=== PATIENT | female | born 1980 | race Caucasian/White ===

== ENCOUNTER 2017-01-05 22:43 | Inpatient (IN) ==
[2017-01-05] MEDS ORDERED: 0.9 % Sodium Chloride 1,000 ML IVC ONE (23:00)
[2017-01-05] MEDS ORDERED: Ondansetron 4 MG/2 ML VIAL IVP ONE (23:01)
[2017-01-05] MEDS ORDERED: *HR* HYDROmorphone (PF) 1 MG/ML SYRINGE IVP ONE ×2 (23:01→23:44)
[2017-01-05 23:09] LABS: Basophils # 0.1 K/mcL (0.0-0.2); Basophils % 0.3 %; Eosinophils % 0.2 %; Hematocrit 34.7 % (35.3-44.9); Hemoglobin 11.2 g/dL (11.5-15.4); Immature Granulocytes % 0.5 % (0-4); Lymphocytes # 1.6 K/mcL (0.6-4.6); Lymphocytes % 9.5 %; Mean Corpuscular HGB Conc 32.3 g/dL (31.6-35.5); Mean Corpuscular Hemoglobin 27.9 pg (28.0-33.3); Mean Corpuscular Volume 86.3 fL (83.0-100.0); Mean Platelet Volume 9.7 fL (9.4-12.4); Monocytes # 0.8 K/mcL (0.0-1.3); Monocytes % 4.6 %; Neutrophils # 14.3 K/mcL (1.6-8.9); Platelet Count 438 K/mcL (140-400); Red Blood Count 4.02 M/mcL (3.82-4.97); Red Cell Distribution Width 12.8 % (11.5-14.5); Segmented Neutrophils % 84.9 %
--- NOTE | 2017-01-05 23:13 | Emergency Department Note ---
Disposition Clinical Impression: Vaginal bleeding, Abdominal pain, Abdominal fluid collection Disposition: Admitted As Inpatient Condition: Fair Referrals: Kamila Henson DO [Primary Care Provider] - Forms: ED Satisfaction Letter Time of Disposition: 02:55 Female Urogenital HPI - General Chief complaint: ED Vaginal Bleeding Stated complaint: Vaginal Bleeding s/p surgery Time Seen by Provider: 01/05/17 23:00 Source: EMS Mode of arrival: private vehicle Limitations: no limitations Nursing Notes Reviewed: Yes Vital Signs Reviewed: Yes - History of Present Illness HPI Narrative: A very pleasant 36-year-old female patient presents to the emergency department via EMS with complaint of lower abdominal pain and vaginal bleeding. Patient states that she is postop from a hysterectomy on 12/17/[address] Pichardo. Patient states that she was recently seen in the office by Dr. Pichardo to half days ago for concerns of a possible yeast infection but was diagnosed with bacterial vaginosis and placed on Flagyl. Patient states that she has been taking her medication as prescribed. She denies any recent sexual intercourse. Patient states that she "had a gush of blood and passed a large clot." Patient is complaining of a significant amount of lower abdominal pain. She denies any back pain, chest pain, shortness of breath, dizziness or lightheadedness. Patient states that she had no complications with her surgery. She has no additional complaints or concerns at this time. Pt Subjective Complaint: vaginal bleeding Onset (ago): hour(s) Location: suprapubic Radiation: non-radiating Severity: severe Quality: aching Duration: constant Improves with: none Worsens with: none Urinary Symptoms: no dysuria, no urgency, no frequency, no hematuria, no foul smelling urine Vaginal discharge: blood, blood clots Sexual activity: no : no - Related Data Home Medications Medication Instructions Recorded Confirmed Cyanocobalamin (Vitamin B-12) 5,000 mcg SL DAILY 02/23/16 12/17/16 [Vitamin B-12] Albuterol Sulfate [Albuterol 2 puff IH Q4HR PRN 12/17/16 12/17/16 Inhaler] Loratadine [Claritin] 10 mg PO DAILY PRN 12/17/16 12/17/16 Previous Rx's Medication Instructions Recorded Ibuprofen [Motrin] 600 mg PO Q6HR PRN #40 tab 12/18/16 Ondansetron [Zofran] 4 mg PO Q8HR PRN #30 tablet 12/18/16 OxyCODONE/APAP 5/325 [Percocet 1 each PO Q4HR PRN #30 tablet 12/18/16 5/325 MG] Levofloxacin [Levaquin] 750 mg PO DAILY #10 tablet 12/20/16 Allergies Allergy/AdvReac Type Severity Reaction Status Date / Time adhesive AdvReac Rash Verified 12/17/16 12:28 cefazolin [From Ancef] AdvReac Hives Verified 12/17/16 12:28 Penicillins [PCN] AdvReac Hives Verified 12/17/16 12:28 All systems ED: reviewed and negative except as stated. Constitutional: Denies: fever, chills Cardiovascular: Denies: chest pain Respiratory: Denies: cough, dyspnea Gastrointestinal: Reports: abdominal pain, nausea. Denies: vomiting Genitourinary: Reports: other (vaginal bleeding). Denies: urgency, dysuria, frequency Musculoskeletal: Denies: back pain, neck pain Integumentary: Denies: rash, abrasion, lesions Neurological: Denies: headache Psychiatric: Denies: anxiety, depression, suicidal thoughts, homicidal thoughts Past Medical History - Past Medical History Attestation: Yes The following information was validated with the patient. Source: patient, nursing notes reviewed Medical history: Reports: asthma, GERD Psychiatric history: Reports: no psych history - Social History Smoking Status: Never smoker Smokeless Tobacco Status: No Alcohol use: Reports: occasionally Drug use: Reports: none Physical Exam - General Limitations: no limitations General appearance: alert, in no apparent distress - Head Head exam: atraumatic, normocephalic, normal inspection - Eye Eye exam: Present: normal appearance, PERRL - Neck Neck exam: Present: normal inspection, full ROM, trachea midline - Chest Chest inspection: Present: normal inspection, symmetric chest wall rise - Respiratory Respiratory exam: Present: normal lung sounds bilaterally. Absent: respiratory distress - Cardiovascular Cardiovascular exam: Present: normal rhythm, tachycardia, normal heart sounds - Abdominal Exam Abdominal exam: Present: soft, tenderness, normal bowel sounds. Absent: distention, guarding, rebound, rigidity Abdominal tenderness: Present: suprapubic - Female Data Operations Leader present during exam: Yes External Exam: Present: bleeding (dried red blood) Speculum Exam: Present: vaginal bleeding (No active bleeding, but there is fresh blood noted in the vaginal vault. Mild amount of discomfort with speculum exam.) - Extremities Exam Extremities exam: Present: normal inspection, full ROM. Absent: tenderness, pedal edema - Expanded Lower Extremity Exam Gait: observed and normal - Back Exam Back exam: Present: normal inspection, full ROM. Absent: tenderness - Neurological Exam Neurological exam: Present: alert, oriented X3 - Psychiatric Psychiatric exam: Present: anxious - Skin Skin exam: Present: warm, dry, intact, normal color Course - Consultations Consultation #1: I discussed this patient's case at length with Dr. Norman, patient has 2 areas of fluid collection on her CT scan concerning for blood-filled areas versus abscesses. Patient will be admitted to the hospital for IV antibiotics, observation and possible intervention by radiology. Patient verbalized understanding and agreement plan care. Time: 02:49 Vital Signs Temperature 98.2 F 01/05/17 22:48 Pulse Rate 105 01/05/17 22:48 Respiratory Rate 22 01/05/17 22:48 Blood Pressure 120/57 01/05/17 22:48 O2 Sat by Pulse Oximetry 100 01/05/17 22:48 Temperature 98.2 F 01/05/17 22:48 Pulse Rate 107 01/06/17 00:57 Respiratory Rate 16 01/06/17 00:57 Blood Pressure 119/88 01/06/17 00:57 O2 Sat by Pulse Oximetry 99 01/06/17 00:57 Oxygen Delivery Oxygen Delivery Room Air Urogenital-Female - Lab Data Result diagrams: 01/05/17 22:54 01/05/17 22:54 Lab Results 01/05/17 01/05/17 01/05/17 Range/Units 00:23 22:54 22:54 WBC 16.9 H (4.3-11.1) K/mcL RBC 4.02 (3.82-4.97) M/mcL Hgb 11.2 L (11.5-15.4) g/dL Hct 34.7 L (35.3-44.9) % MCV 86.3 (83.0-100.0) fL MCH 27.9 L (28.0-33.3) pg MCHC 32.3 (31.6-35.5) g/dL RDW 12.8 (11.5-14.5) % Plt Count 438 H (140-400) K/mcL MPV 9.7 (9.4-12.4) fL Immature Gran % 0.5 (0-4) % Seg Neutrophils % 84.9 % Lymphocytes % 9.5 % Monocytes % 4.6 % Eosinophils % 0.2 % Basophils % 0.3 % Neutrophils # 14.3 H (1.6-8.9) K/mcL Lymphocytes # 1.6 (0.6-4.6) K/mcL Monocytes # 0.8 (0.0-1.3) K/mcL Eosinophils # 0.0 (0.0-0.6) K/mcL Basophils # 0.1 (0.0-0.2) K/mcL PT 15.5 H (9.4-12.1) Seconds INR 1.4 APTT 37.0 H (26.0-36.0) Seconds Sodium (136-145) mEq/L Potassium (3.5-4.5) mEq/L Chloride (98-109) mEq/L Carbon Dioxide (19-29) mEq/L BUN (7-20) mg/dL Creatinine (0.57-1.11) mg/dL Est GFR ( Amer) (> 60) Est GFR (Non-Af Amer) (> 60) BUN/Creatinine Ratio (6-26) Glucose (70-99) mg/dL Calculated Osmolality (280-300) Calcium (8.6-10.8) mg/dL Total Bilirubin (0.2-1.2) mg/dL Direct Bilirubin (0.0-0.5) mg/dL Indirect Bilirubin (0.0-1.2) mg/dL AST (5-34) Units/L ALT (0-55) Units/L Alkaline Phosphatase (38-126) Units/L Serum Total Protein (6.0-8.3) g/dL Albumin (3.5-5.0) g/dL Globulin (2.4-3.5) g/dL Albumin/Globulin Ratio (1.1-2.2) Urine Color Yellow (Yellow) Urine Clarity Clear (Clear) Urine pH 8.5 H (5.0-8.0) pH Units Ur Specific [place] 1.017 (1.010-1.025) Urine Protein Negative (Neg-Trace) mg/dL Urine Glucose (UA) Normal (Normal) mg/dL Urine Ketones Negative (Negative) mg/dL Urine Blood Negative (Negative) Urine Nitrite Negative (Negative) Urine Bilirubin Negative (Negative) Urine Urobilinogen Normal (Normal) mg/dL Ur Leukocyte Esterase Negative (Negative) Urine Microscopic RBC 0-3 (0-3) per hpf Ur Squamous Epith Cells Moderate H (None-Few) per lpf Urine Bacteria None Seen (None-Few) per hpf Hyaline Casts None Seen (None-Few) per lpf Ur Culture Indicated? NO (NO) Blood Type Antibody Screen 01/05/17 01/05/17 Range/Units 22:54 22:54 WBC (4.3-11.1) K/mcL RBC (3.82-4.97) M/mcL Hgb (11.5-15.4) g/dL Hct (35.3-44.9) % MCV (83.0-100.0) fL MCH (28.0-33.3) pg MCHC (31.6-35.5) g/dL RDW (11.5-14.5) % Plt Count (140-400) K/mcL MPV (9.4-12.4) fL Immature Gran % (0-4) % Seg Neutrophils % % Lymphocytes % % Monocytes % % Eosinophils % % Basophils % % Neutrophils # (1.6-8.9) K/mcL Lymphocytes # (0.6-4.6) K/mcL Monocytes # (0.0-1.3) K/mcL Eosinophils # (0.0-0.6) K/mcL Basophils # (0.0-0.2) K/mcL PT (9.4-12.1) Seconds INR APTT (26.0-36.0) Seconds Sodium 140 (136-145) mEq/L Potassium 3.8 (3.5-4.5) mEq/L Chloride 104 (98-109) mEq/L Carbon Dioxide 25 (19-29) mEq/L BUN 12 (7-20) mg/dL Creatinine 0.75 (0.57-1.11) mg/dL Est GFR ( Amer) > 60 (> 60) Est GFR (Non-Af Amer) > 60 (> 60) BUN/Creatinine Ratio 16 (6-26) Glucose 107 H (70-99) mg/dL Calculated Osmolality 290 (280-300) Calcium 9.3 (8.6-10.8) mg/dL Total Bilirubin 0.3 (0.2-1.2) mg/dL Direct Bilirubin 0.2 (0.0-0.5) mg/dL Indirect Bilirubin 0.1 (0.0-1.2) mg/dL AST 10 (5-34) Units/L ALT 11 (0-55) Units/L Alkaline Phosphatase 79 (38-126) Units/L Serum Total Protein 7.5 (6.0-8.3) g/dL Albumin 3.0 L (3.5-5.0) g/dL Globulin 4.5 H (2.4-3.5) g/dL Albumin/Globulin Ratio 0.7 L (1.1-2.2) Urine Color (Yellow) Urine Clarity (Clear) Urine pH (5.0-8.0) pH Units Ur Specific [place] (1.010-1.025) Urine Protein (Neg-Trace) mg/dL Urine Glucose (UA) (Normal) mg/dL Urine Ketones (Negative) mg/dL Urine Blood (Negative) Urine Nitrite (Negative) Urine Bilirubin (Negative) Urine Urobilinogen (Normal) mg/dL Ur Leukocyte Esterase (Negative) Urine Microscopic RBC (0-3) per hpf Ur Squamous Epith Cells (None-Few) per lpf Urine Bacteria (None-Few) per hpf Hyaline Casts (None-Few) per lpf Ur Culture Indicated? (NO) Blood Type O POSITIVE Antibody Screen NEGATIVE
[2017-01-05 23:15] LABS: INR 1.4; Prothrombin Time 15.5 Seconds (9.4-12.1)
[2017-01-05 23:25] LABS: Alanine Aminotransferase 11 Units/L (0-55); Albumin/Globulin Ratio 0.7 (1.1-2.2); Alkaline Phosphatase 79 Units/L (38-126); Aspartate Amino Transferase 10 Units/L (5-34); BUN/Creatinine Ratio 16 (6-26); Bilirubin,Direct 0.2 mg/dL (0.0-0.5); Bilirubin,Indirect 0.1 mg/dL (0.0-1.2); Bilirubin,Total 0.3 mg/dL (0.2-1.2); Blood Urea Nitrogen 12 mg/dL (7-20); Calcium 9.3 mg/dL (8.6-10.8); Carbon Dioxide 25 mEq/L (19-29); Chloride 104 mEq/L (98-109); Globulin 4.5 g/dL (2.4-3.5); Glucose 107 mg/dL (70-99); Osmolality,Calculated 290 (280-300); Potassium 3.8 mEq/L (3.5-4.5); Sodium 140 mEq/L (136-145); Total Protein 7.5 g/dL (6.0-8.3); eGFR For African Americans > 60 (> 60); eGFR For Non-African Americans > 60 (> 60)
[2017-01-05 23:54] LABS: Bilirubin,Urine Negative (Negative); Blood,Urine Negative (Negative); Glucose,Urine (UA) Normal (Normal); Ketones,Urine Negative (Negative); Leukocyte Esterase,Urine Negative (Negative); Nitrite,Urine Negative (Negative); PH,Urine 8.5 pH Units (5.0-8.0); Protein,Urine Negative (Neg-Trace); Specific Gravity,Urine 1.017 (1.010-1.025); Urobilinogen,Urine Normal (Normal)
[2017-01-05 23:56] LABS: Bacteria,Urine None Seen per hpf (None-Few); Clarity,Urine Clear (Clear); Color,Urine Yellow (Yellow); Hyaline Casts,Urine None Seen per lpf (None-Few); RBC,Urine 0-3 per hpf (0-3); Squamous Epithelial Cell,Urine Moderate per lpf (None-Few)
[2017-01-06] MEDS ORDERED: *HR* Promethazine 25 MG/ML VIAL IVP ONE (00:49)
[2017-01-06] MEDS ORDERED: 0.9 % Sodium Chloride 1,000 ML ONE (01:46)
[2017-01-06] MEDS ORDERED: *HR* OxyCODONE/APAP 5/325 TABLET PO ONE (02:16)
[2017-01-06] MEDS ORDERED: *HR* Morphine 2 MG/ML SYRINGE IVP ONE (02:16)
[2017-01-06] MEDS ORDERED: 0.9 % Sodium Chloride 1,000 ML IVC ONE (02:31)
[2017-01-06] MEDS ORDERED: Promethazine 25 MG in 0.9 % Sodium Chloride 50 ML IVPB ONE (04:39)
[2017-01-06] MEDS ORDERED: GENTAMICIN IVPB SCH (05:00)
[2017-01-06] MEDS ORDERED: SODIUM CHLORIDE 0.9% IVPB SCH (05:00)
[2017-01-06] MEDS: Ringers Solution, Lactated 1,000 ML IVC SCH ×2 (05:46→16:14)
[2017-01-06] MEDS ORDERED: Ondansetron 4 MG/2 ML VIAL IVP SCH (06:00)
[2017-01-06] MEDS: Clindamycin 900 MG/50 ML 900 MG/50 ML IV.SOLN IVPB SCH ×3 (08:11→23:41)
--- NOTE | 2017-01-06 08:30 | OB/GYN History & Physical ---
Date of Encounter: 01/06/17 Time of Encounter: 08:21 Assessment and Plan (1) Abscess Current visit: Yes Status: Acute s/p RATLH on 12/17, will start Gent and Clind since patient is allergic to zosyn, will cont for [address] scan, if abscess unresolved, will contact VIR for drainage, will get in touch with Dr Pichadro History of Present Illness HPI: Ms. Liz is a 36 year old female s/p RA TLH on 12/[address] Pichardo who presented to the ED with complaints of pelvic pain and vag bleeding. She had a CT scan done which showed 2 pockets of vag cuff abscess measuring 4 and 5 cm approx. She is currently admitted to the floor for IV antibiotics with possible VIR drainage if unresolved with 48hrs. Past Med Surg Social Fam HX - Past Medical History Medical history: asthma, GERD Psychiatric history: no psych history - Social History Smoking Status: Never smoker Smokeless Tobacco Status: No Alcohol use: occasionally Drug use: none Medications and Allergies Cyanocobalamin (Vitamin B-12) [Vitamin B-12] 5,000 mcg SL DAILY 02/23/16 [ History] Albuterol Sulfate [Albuterol Inhaler] 2 puff IH Q4HR PRN 12/17/16 [History] Loratadine [Claritin] 10 mg PO DAILY PRN 12/17/16 [History] Ibuprofen [Motrin] 600 mg PO Q6HR PRN #40 tab 12/18/16 [Rx] Ondansetron [Zofran] 4 mg PO Q8HR PRN #30 tablet 12/18/16 [Rx] OxyCODONE/APAP 5/325 [Percocet 5/325 MG] 1 each PO Q4HR PRN #30 tablet 12/18/16 [Rx] Levofloxacin [Levaquin] 750 mg PO DAILY #10 tablet 12/20/16 [Rx] Allergies adhesive Adverse Reaction (Verified 12/17/16 12:28) Rash cefazolin [From Ancef] Adverse Reaction (Verified 12/17/16 12:28) Hives Penicillins [PCN] Adverse Reaction (Verified 12/17/16 12:28) Hives Review of System OB All systems PM: reviewed and no additional remarkable complaints except as stated Exam - Vital Signs Vital signs: Initial Vital Signs Temp Pulse Resp BP Pulse Ox 98.2 F 105 22 120/57 100 01/05/17 22:48 01/05/17 22:48 01/05/17 22:48 01/05/17 22:48 01/05/17 22:48 - Constitutional Constitutional: no acute distress - HEENT HEENT: Normocephaly - Neck Neck exam: full ROM - Lungs Respiratory exam: CTAB - Cardiovascular Cardiovascular exam: RRR - Abdomen Abdomen: Present: bowel sounds normal Abdomen detail: right upper quadrant: tenderness (mild), right lower quadrant: tenderness, left upper quadrant: tenderness, left lower quadrant: tenderness Results Result Diagrams: 01/05/17 22:54 01/05/17 22:54 Abnormal lab results WBC 16.9 K/mcL (4.3-11.1) H 01/05/17 22:54 Hgb 11.2 g/dL (11.5-15.4) L 01/05/17 22:54 Hct 34.7 % (35.3-44.9) L 01/05/17 22:54 MCH 27.9 pg (28.0-33.3) L 01/05/17 22:54 Plt Count 438 K/mcL (140-400) H 01/05/17 22:54 Neutrophils # 14.3 K/mcL (1.6-8.9) H 01/05/17 22:54 PT 15.5 Seconds (9.4-12.1) H 01/05/17 22:54 APTT 37.0 Seconds (26.0-36.0) H 01/05/17 22:54 Glucose 107 mg/dL (70-99) H 01/05/17 22:54 Albumin 3.0 g/dL (3.5-5.0) L 01/05/17 22:54 Globulin 4.5 g/dL (2.4-3.5) H 01/05/17 22:54 Albumin/Globulin Ratio 0.7 (1.1-2.2) L 01/05/17 22:54 Urine pH 8.5 pH Units (5.0-8.0) H 01/05/17 00:23 Ur Squamous Epith Cells Moderate per lpf (None-Few) H 01/05/17 00:23 All other labs normal.
[2017-01-06] MEDS: Gentamicin 130 MG in 0.9 % Sodium Chloride 100 ML IVPB SCH ×2 (13:35→21:06)
[2017-01-06] MEDS ORDERED: Gentamicin 140 MG in 0.9 % Sodium Chloride 100 ML IVPB SCH (15:00)
[2017-01-06] MEDS: Ondansetron 4 MG/2 ML VIAL IVP PRN (16:51)
[2017-01-07] MEDS: Ringers Solution, Lactated 1,000 ML IVC SCH ×2 (02:18→13:45)
[2017-01-07] MEDS: Gentamicin 130 MG in 0.9 % Sodium Chloride 100 ML IVPB SCH (05:28)
[2017-01-07 06:14] LABS: Hematocrit 30.8 % (35.3-44.9); Hemoglobin 9.7 g/dL (11.5-15.4); Immature Granulocytes % 0.6 % (0-4); Lymphocytes % 12.3 %; Mean Corpuscular HGB Conc 31.5 g/dL (31.6-35.5); Mean Corpuscular Hemoglobin 27.7 pg (28.0-33.3); Mean Platelet Volume 9.9 fL (9.4-12.4); Monocytes % 5.7 %; Platelet Count 385 K/mcL (140-400); Red Cell Distribution Width 13.2 % (11.5-14.5); Segmented Neutrophils % 80.9 %
[2017-01-07 06:15] LABS: Basophils % 0.2 %; Eosinophils % 0.3 %; Lymphocytes # 1.8 K/mcL (0.6-4.6); Monocytes # 0.8 K/mcL (0.0-1.3); Neutrophils # 11.7 K/mcL (1.6-8.9)
[2017-01-07] MEDS: Clindamycin 900 MG/50 ML 900 MG/50 ML IV.SOLN IVPB SCH ×3 (08:57→23:23)
--- NOTE | 2017-01-07 12:31 | OB/GYN Progress Note ---
Date of Encounter: 01/07/17 Time of Encounter: 12:29 - Assessment and Plan (1) Abscess Current Visit: Yes Status: Acute Patient clinically looking better still with low-grade fever and low appetite. We will continue IV antibiotics for another 12 hours obtain repeat CAT scan consider reexploration for drainage of the abscesses. We will place an. After midnight and CAT scan was ordered for tomorrow a.m. (2) S/P hysterectomy Current Visit: No Status: Acute Incisions are healing well without redness or erythema. Subjective - Subjective Principal diagnosis: pelvic abcesses s/p hysterectomy Interval history: Pt now with minimal bleeding/drainage. Pain improved. Very little appetite Objective - Vital Signs Vital Signs: Vital Signs Temp Pulse Resp BP 01/07/17 12:00 98.9 F 99 16 109/73 Intake and Output 01/06/17 01/07/17 01/07/17 23:59 07:59 15:59 Intake Total 600 / 600 Output Total 750 / 750 Balance -150 / -150 Intake: Oral 600 / 600 Output: Urine 750 / 750 - Exam Auscultation: bilateral: normal Abdomen: Present: soft, other (Mild tenderness bilateral lower quadrants) - Labs Labs: Abnormal lab results WBC 14.5 K/mcL (4.3-11.1) H 01/07/17 05:16 RBC 3.50 M/mcL (3.82-4.97) L 01/07/17 05:16 Hgb 9.7 g/dL (11.5-15.4) L D 01/07/17 05:16 Hct 30.8 % (35.3-44.9) L 01/07/17 05:16 MCH 27.7 pg (28.0-33.3) L 01/07/17 05:16 MCHC 31.5 g/dL (31.6-35.5) L 01/07/17 05:16 Neutrophils # 11.7 K/mcL (1.6-8.9) H 01/07/17 05:16 PT 15.5 Seconds (9.4-12.1) H 01/05/17 22:54 APTT 37.0 Seconds (26.0-36.0) H 01/05/17 22:54 Glucose 107 mg/dL (70-99) H 01/05/17 22:54 Albumin 3.0 g/dL (3.5-5.0) L 01/05/17 22:54 Globulin 4.5 g/dL (2.4-3.5) H 01/05/17 22:54 Albumin/Globulin Ratio 0.7 (1.1-2.2) L 01/05/17 22:54 Urine pH 8.5 pH Units (5.0-8.0) H 01/05/17 00:23 Ur Squamous Epith Cells Moderate per lpf (None-Few) H 01/05/17 00:23
[2017-01-07] MEDS ORDERED: *HR* Promethazine 25 MG/ML VIAL IVP PRN (14:21)
[2017-01-07] MEDS: *HR* HYDROmorphone (PF) 1 MG/ML SYRINGE IVP PRN ×2 (14:37→22:24)
[2017-01-07] MEDS ORDERED: Gentamicin 500 MG in 0.9 % Sodium Chloride 100 ML IVPB SCH (16:00)
[2017-01-08] MEDS: Ringers Solution, Lactated 1,000 ML IVC SCH ×3 (00:34→16:32)
[2017-01-08 06:41] LABS: Basophils % 0.3 %; Eosinophils # 0.1 K/mcL (0.0-0.6); Eosinophils % 0.8 %; Hemoglobin 9.1 g/dL (11.5-15.4); Immature Granulocytes % 0.5 % (0-4); Lymphocytes # 1.5 K/mcL (0.6-4.6); Lymphocytes % 14.5 %; Mean Corpuscular HGB Conc 31.4 g/dL (31.6-35.5); Mean Corpuscular Hemoglobin 27.7 pg (28.0-33.3); Mean Corpuscular Volume 88.1 fL (83.0-100.0); Mean Platelet Volume 9.6 fL (9.4-12.4); Monocytes # 0.6 K/mcL (0.0-1.3); Monocytes % 5.6 %; Neutrophils # 8.3 K/mcL (1.6-8.9); Platelet Count 355 K/mcL (140-400); Red Blood Count 3.29 M/mcL (3.82-4.97); Red Cell Distribution Width 13.1 % (11.5-14.5); Segmented Neutrophils % 78.3 %
[2017-01-08] MEDS: Clindamycin 900 MG/50 ML 900 MG/50 ML IV.SOLN IVPB SCH ×2 (08:04→16:33)
[2017-01-08] MEDS: Ondansetron 4 MG/2 ML VIAL IVP PRN ×2 (08:10→21:29)
[2017-01-08] MEDS ORDERED: Bupivacaine/EPI 1:200k 0.25%PF 10 ML VIAL INFILT ONE ×2 (16:42→17:24)
--- NOTE | 2017-01-08 17:35 | Anesthesia Evaluation PreOp ---
Date of Encounter: 01/08/17 Time of Encounter: 17:35 - Past History Planned Operation: Diagnostic Lap Cardiac History: Denies any Significant Hx Pulmonary History: Asthma CUSTODIAN SUPERVISOR History: Denies Any Significant HX Other Medical History: GERD Anesthesia History: No Prior Anesthetic Complications : No (s/p Robotic Lap Hysterectomy) Alcohol Use: occasionally Drug use: none Medications and Allergies Cyanocobalamin (Vitamin B-12) [Vitamin B-12] 5,000 mcg SL DAILY 02/23/16 [ History] Albuterol Sulfate [Albuterol Inhaler] 2 puff IH Q4HR PRN 12/17/16 [History] Loratadine [Claritin] 10 mg PO DAILY PRN 12/17/16 [History] Ibuprofen [Motrin] 600 mg PO Q6HR PRN #40 tab 12/18/16 [Rx] Ondansetron [Zofran] 4 mg PO Q8HR PRN #30 tablet 12/18/16 [Rx] OxyCODONE/APAP 5/325 [Percocet 5/325 MG] 1 each PO Q4HR PRN #30 tablet 12/18/16 [Rx] Levofloxacin [Levaquin] 750 mg PO DAILY #10 tablet 12/20/16 [Rx] Allergies wheat Allergy (Verified 01/06/17 12:38) Vomiting adhesive Adverse Reaction (Verified 12/17/16 12:28) Rash cefazolin [From Ancef] Adverse Reaction (Verified 12/17/16 12:28) Hives Penicillins [PCN] Adverse Reaction (Verified 12/17/16 12:28) Hives - Meds/Allergy Pre-op Review Medications Reviewed: Yes Allergies Reviewed: Yes Beta Blockers on Current Med List: No Anesthesia Results - Labs 01/08/17 06:12 01/05/17 22:54 Anesthesia Exam O2 Sat Weight 85.871 kg O2 Sat by Pulse Oximetry 100 O2 Sat by Pulse Oximetry 97 O2 Sat by Pulse Oximetry 96 O2 Sat by Pulse Oximetry 95 O2 Sat by Pulse Oximetry 99 Vital Signs Temp Pulse Resp BP Pulse Ox 98.2 F 105 22 120/57 100 01/05/17 22:48 01/05/17 22:48 01/05/17 22:48 01/05/17 22:48 01/05/17 22:48 Height: 5'8 Weight: 189 lbs NPO (# of Hours): MN Pain Scale: 0 - HEENT Pupil (Motor): Pupils equal, EOMI Mallampati: II Teeth: Normal Oral Opening: Greater than 3 - CUSTODIAN SUPERVISOR LOC: Oriented CUSTODIAN SUPERVISOR Motor: Normal RUE, Normal LUE, Normal RLE, Normal LLE, Normal Face CUSTODIAN SUPERVISOR Sensory: Normal: RUE, LUE, RLE, LLE, Face - Cardiac Rhythm: Regular Murmur: None JVD: No Carotid Bruit: No - Pulmonary Breath Sounds: bilateral Clear Respiratory Effort: Symmetrical Anesthesia Assess/Plan ASA Score: 2 Modified [place] Scale for Level of Consciousness: Cooperative, oriented, and tranquil Anesthetic Plan: General Monitoring Plan: Standard Monitors Recovery Plan: PACU (Discussed GA, agrees to proceed)
[2017-01-08] MEDS ORDERED: Lidocaine -MPF 4% 5 ML AMPUL ONE (17:38)
[2017-01-08] MEDS ORDERED: *HR* Midazolam HCl 2 MG/2 ML VIAL ONE (17:42)
[2017-01-08] MEDS ORDERED: *HR* Propofol 200 MG/20 ML VIAL IVP ONE (17:42)
[2017-01-08] MEDS ORDERED: *HR* FentaNYL (PF) 100 MCG/2 ML VIAL ONE (17:42)
[2017-01-08] MEDS ORDERED: *HR* Rocuronium Bromide 50 MG/5 ML VIAL ONE (17:44)
[2017-01-08] MEDS ORDERED: Lidocaine -MPF 2% 2 ML VIAL ONE (17:44)
[2017-01-08] MEDS ORDERED: Ondansetron 4 MG/2 ML VIAL ONE (18:21)
[2017-01-08] MEDS ORDERED: Dexamethasone 4 MG/ML VIAL ONE (18:21)
[2017-01-08] MEDS ORDERED: Ketorolac 30 MG/ML VIAL ONE ×2 (18:22→20:41)
[2017-01-08] MEDS ORDERED: *HR* Promethazine 25 MG/ML VIAL IVP PRN ×2 (18:23→22:13)
[2017-01-08] MEDS ORDERED: Neostigmine Methylsulfate 3 MG/3 ML SYRINGE ONE ×2 (19:43→19:48)
[2017-01-08] MEDS: *HR* HYDROmorphone (PF) 1 MG/ML SYRINGE IVP PRN ×4 (20:05→20:20)
[2017-01-08] MEDS ORDERED: Acetaminophen IV 1,000 MG/100 ML INFUS..BTL IVPB ONE (20:25)
[2017-01-08] MEDS ORDERED: Ketorolac 30 MG/ML VIAL IVP ONE (20:26)
--- NOTE | 2017-01-08 20:57 | Anesthesia Evaluation Post Op ---
Date of Encounter: 01/08/17 Time of Encounter: 20:57 - Vital Signs Vital Signs: Vital Signs/O2 Sat/Glucose, Most Current Temp Pulse Resp BP Pulse Ox 01/08/17 20:42 98.1 F 76 18 105/73 100 01/08/17 20:32 98.2 F 69 18 107/73 100 01/08/17 20:22 74 20 110/70 100 01/08/17 20:13 78 20 116/75 99 01/08/17 20:02 97.7 F 90 20 123/82 99 - Lungs Lungs: Clear Ascult./Percussion - Airway Airway: Non-obstructed - Cardiovascular Regular Rate - Mental Status Mental Status: Alert & Oriented, Answers Appropriately - Pain Pain Scale: 3 - Nausea Vomiting Nausea Vomiting: Not Present - Hydration Hydration: NPO - Discharge PostOp Status: Transfer Patient to floor
--- NOTE | 2017-01-08 21:40 | OB/GYN Procedure Note ---
[facility]: Procedure - Diagnosis Date of procedure: 01/08/17 Pre-op diagnosis: Postop pelvic abscesses Post-op diagnosis: other (Pelvic adhesions) - Procedure Procedure: Dx l/s, extensive PARAS, drainage of vaginal cuff abcesses. Surgeon: Lino Pichardo Anesthesia Type: General Estimated blood loss (cc): 100 Fluids: crystalloid Procedure Complications: None Specimens collected: None Disposition: PACU Findings: Dense pelvic adhesions between rectosigmoid colon omentum and small bowel to the vaginal cuff. Communicating 5 cm and 4 cm pelvic abscess as well as thick white curd-like material Narrative: Patient's a 36-year-old female 3 weeks status post robotic hysterectomy presented with postop fever and pain as well as vaginal bleeding found on CAT scan to have a 5 cm and a 4 cm pelvic abscess. The initial bleeding she presented with was quite heavy but it resolved fairly quickly and she now just has a slight mucopurulent drainage. Patient continued to have pain and despite IV gentamicin and clindamycin the abscesses did not resolve and actually were quite stable. Patient had been on multiple antibiotics over the last 3 weeks and after discussed with patient options she agreed to proceed with laparoscopy with drainage of pelvic abscesses. She was aware of operative risks and signed appropriate consent. Description of procedure: Patient was taken operating room where general anesthesia was administered she was prepped draped in usual sterile fashion bladder was drained of clear urine. Exam under anesthesia did reveal some purulent drainage but really minimal vaginal cuff induration. There were pelvic masses just above the vaginal cuff is had been seen on CAT scan. 5 mm trocar was placed in the midline just above the symphysis pubis. Insufflation was performed and she was placed in Trendelenburg position. A second 5 mm trochars placed in the right upper abdominal incision from her prior robotic surgery. It was noted that the omentum was adherent to the anterior abdominal wall and down into the pelvis. The omental adhesions were taken down sharply and bluntly. At this point there were adhesions between the rectosigmoid colon and the vaginal cuff and the pelvic sidewall these were sharply taken down without difficulty. To gain better access a 12 mm trocar was placed in the left lower quadrant. This point there were more adhesions between the small bowel and the anterior abdominal wall as well as the vaginal cuff. These were taken down sharply and bluntly. At this point was able to see the dome of 100 abscesses to the left of the pelvic cuff. This was opened and several cc of thick white discharge was drained. I did use a pull suction device but there was spillage into the abdominal cavity. I extended the incision over the dome and actually found there to be a 4 cm and a 3 cm thick curd-like collection the appeared to be encapsulated pus. An Endo Catch bag was placed these were placed in Endo Catch bag and removed. I was able to further explore the abscesses and opening and irrigate them. Once they were empty performed copious irrigation of the abdominal cavity. Hemostasis was ensured pneumoperitoneum was released and trochars removed. An 0 Vicryl suture was placed in the 12 mm trocar site skin edges reapproximated with 4-0 Vicryl. All sponge and instruments counts are correct patient was taken recovery in good condition.
[2017-01-08] MEDS ORDERED: *HR* LORazepam 0.5 MG TABLET PO PRN (22:13)
[2017-01-08] MEDS: Gentamicin 500 MG in 0.9 % Sodium Chloride 100 ML IVPB SCH (23:12)
[2017-01-09] MEDS: Clindamycin 900 MG/50 ML 900 MG/50 ML IV.SOLN IVPB SCH ×3 (00:32→15:58)
[2017-01-09] MEDS: *HR* HYDROmorphone (PF) 1 MG/ML SYRINGE IVP PRN ×4 (00:34→16:14)
[2017-01-09] MEDS ORDERED: Ipratropium/Albuterol Neb 3 ML ONE (07:55)
--- NOTE | 2017-01-09 07:57 | Discharge Summary ---
Date of Encounter: 01/09/17 Time of Encounter: 07:57 - Discharge Diagnosis (1) Abscess Priority: Primary Status: Acute Comments: Pt now s/p l/s with drainage of large vaginal cuff abcesses and yumiko. Pt having significant pain but is afebrile. CBC is pending. (2) S/P hysterectomy Priority: Secondary Status: Acute (3) Hypoxia Priority: Secondary Status: Acute Comments: Pt with hypoxia, but c/o difficulty with deep inspiration with pain. She also has h/o asthma. Will give nebulizer and consider spiral CT vs CXR if persits. No calf tenderness. (4) Anemia Priority: Secondary Status: Acute Comments: Pt presented with vaginal bleeding and now has relatively stable anemia. Will replace with iron when taking po well. Qualifiers: Qualified Code(s): D64.9 - Anemia, unspecified - Discharge Medications Prescriptions: Ondansetron [Zofran] 4 mg PO Q8HR PRN #20 tablet PRN Reason: Nausea HYDROcodone/Acet 5/325 mg [[place] 5-325 mg] 1 tab PO Q4H PRN #30 tab PRN Reason: post op pain metroNIDAZOLE [Flagyl] 500 mg PO BID #20 tablet Moxifloxacin HCl [Avelox] 400 mg PO DAILY #10 tablet Home Medications: Cyanocobalamin (Vitamin B-12) [Vitamin B-12] 5,000 mcg SL DAILY 02/23/16 [ History] Albuterol Sulfate [Albuterol Inhaler] 2 puff IH Q4HR PRN 12/17/16 [History] Loratadine [Claritin] 10 mg PO DAILY PRN 12/17/16 [History] Ibuprofen [Motrin] 600 mg PO Q6HR PRN #40 tab 12/18/16 [Rx] Ondansetron [Zofran] 4 mg PO Q8HR PRN #30 tablet 12/18/16 [Rx] OxyCODONE/APAP 5/325 [Percocet 5/325 MG] 1 each PO Q4HR PRN #30 tablet 12/18/16 [Rx] Levofloxacin [Levaquin] 750 mg PO DAILY #10 tablet 12/20/16 [Rx] HYDROcodone/Acet 5/325 mg [[place] 5-325 mg] 1 tab PO Q4H PRN #30 tab 01/09/17 [Rx ] Moxifloxacin HCl [Avelox] 400 mg PO DAILY #10 tablet 01/09/17 [Rx] Ondansetron [Zofran] 4 mg PO Q8HR PRN #20 tablet 01/09/17 [Rx] metroNIDAZOLE [Flagyl] 500 mg PO BID #20 tablet 01/09/17 [Rx] Allergies/Adverse Reactions: Allergies wheat Allergy (Verified 01/06/17 12:38) Vomiting adhesive Adverse Reaction (Verified 12/17/16 12:28) Rash cefazolin [From Ancef] Adverse Reaction (Verified 12/17/16 12:28) Hives Penicillins [PCN] Adverse Reaction (Verified 12/17/16 12:28) Hives Data Procedures and tests throughout hospitalization: Laboratory Tests 01/08/17 06:12 WBC 10.6 RBC 3.29 L Hgb 9.1 L Hct 29.0 L MCV 88.1 MCH 27.7 L MCHC 31.4 L RDW 13.1 Plt Count 355 MPV 9.6 Immature Gran % 0.5 Seg Neutrophils % 78.3 Lymphocytes % 14.5 Monocytes % 5.6 Eosinophils % 0.8 Basophils % 0.3 Neutrophils # 8.3 Lymphocytes # 1.5 Monocytes # 0.6 Eosinophils # 0.1 Basophils # 0.0 - Impressions ITS Impressions Pelvis CT 01/08/17 09:30 IMPRESSION: 1. Status post hysterectomy with similar appearance of a complex fluid collection in the surgical bed containing gas extending from the vaginal cuff. 2. Slight interval decrease in size of bilateral adnexal abscesses extending from the vaginal cuff and contiguous with the ovarian vasculature. The left abscess measures up to 3.4 cm. The right abscess measures up to 5.0 cm. Findings are associated with moderate inflammatory stranding. 3. Tiny focus of gas in the bladder may be iatrogenic or related to recent instrumentation. No definite communication with the abscess is identified. D/ / 01/08/2017 10:30:57 Aileen Gross MD / bcarter Interpreting Provider: Aileen Gross MD Pt s/p l/s with drainage of vaginal cuff abcesses and irrigation. Pt c/o pain in shoulder with deep inspiration and c/o deep abdominal pain. She hasn't taken any pain meds since Dilaudid at midnight. No nausea, desires clear liquid breakfast. Date of admission: 01/07/17 08:28 Primary care physician: Josemanuel Welsh - Patient Status Disposition: Home, Self-Care Condition: Fair Functional capacity at discharge: independent ambulation Overall status at discharge: patient is progressing back to baseline - Discharge Instructions Follow Up With: Lino Pichardo MD [Partnered Physician] - Hospital Course [facility]ER Time Attestation: Total time spent providing and/or coordinating discharge services: Exam - Constitutional Vitals: Temp Pulse Resp BP Pulse Ox 97.6 F 76 90 102/70 98 01/09/17 00:24 01/09/17 00:24 01/09/17 05:48 01/09/17 00:24 01/09/17 05:48 General appearance IM: A&O X 3 - Respiratory Respiratory exam: Present: CTAB - Cardiovascular Cardiovascular exam IM: Present: RRR - GI/Abdominal GI/Abdominal exam IM: normal bowel sounds Incision: normal Additional comments: Pt with tenderness in right shoulder and along rib cage with deep palpation - Extremities Exam Extremities exam IM: Present: full ROM - Neurological Exam Neurological exam: oriented X3
[2017-01-09] MEDS: Ipratropium/Albuterol Neb 3 ML IH SCH ×3 (08:01→20:45)
[2017-01-09] MEDS: Simethicone 80 MG TAB.CHEW PO PRN ×3 (08:33→15:58)
[2017-01-09 08:34] LABS: Hematocrit 32.2 % (35.3-44.9); Hemoglobin 10.5 g/dL (11.5-15.4); Lymphocytes # 0.9 K/mcL (0.6-4.6); Mean Corpuscular HGB Conc 32.6 g/dL (31.6-35.5); Mean Corpuscular Hemoglobin 27.6 pg (28.0-33.3); Mean Corpuscular Volume 84.7 fL (83.0-100.0); Mean Platelet Volume 9.6 fL (9.4-12.4); Monocytes # 0.5 K/mcL (0.0-1.3); Platelet Count 404 K/mcL (140-400); Red Cell Distribution Width 13.1 % (11.5-14.5)
[2017-01-09] MEDS: Ketorolac 15 MG/ML VIAL IVP PRN ×2 (08:52→15:58)
[2017-01-09 09:21] LABS: Neutrophils # 21.3 K/mcL (1.6-8.9)
[2017-01-09 09:23] LABS: Platelet Estimate Normal (Normal)
[2017-01-09] MEDS: Ondansetron 4 MG/2 ML VIAL IVP PRN (12:14)
[2017-01-09] MEDS: Ringers Solution, Lactated 1,000 ML IVC SCH ×2 (12:33→20:35)
[2017-01-09] MEDS ORDERED: Gentamicin 500 MG in 0.9 % Sodium Chloride 100 ML IVPB SCH (16:00)
[2017-01-09] MEDS: Gentamicin 500 MG in 0.9 % Sodium Chloride 100 ML IVPB SCH (22:43)
[2017-01-09 23:38] LABS: BUN/Creatinine Ratio 14 (6-26); Blood Urea Nitrogen 10 mg/dL (7-20); eGFR For African Americans > 60 (> 60); eGFR For Non-African Americans > 60 (> 60)
[2017-01-10] MEDS: Ketorolac 15 MG/ML VIAL IVP PRN ×2 (00:06→06:43)
[2017-01-10] MEDS: Clindamycin 900 MG/50 ML 900 MG/50 ML IV.SOLN IVPB SCH (00:12)
[2017-01-10 01:36] LABS: Basophils % 0.1 %; Eosinophils % 0.1 %; Hematocrit 26.5 % (35.3-44.9); Hemoglobin 8.6 g/dL (11.5-15.4); Immature Granulocytes % 0.6 % (0-4); Lymphocytes % 6.2 %; Mean Corpuscular HGB Conc 32.5 g/dL (31.6-35.5); Mean Corpuscular Hemoglobin 27.7 pg (28.0-33.3); Mean Corpuscular Volume 85.2 fL (83.0-100.0); Mean Platelet Volume 9.2 fL (9.4-12.4); Monocytes # 0.6 K/mcL (0.0-1.3); Monocytes % 3.6 %; Neutrophils # 14.1 K/mcL (1.6-8.9); Platelet Count 327 K/mcL (140-400); Red Blood Count 3.11 M/mcL (3.82-4.97); Red Cell Distribution Width 13.6 % (11.5-14.5); Segmented Neutrophils % 89.4 %
[2017-01-10 01:37] LABS: Gentamicin,Trough 5.49 mcg/mL (0-1.9)
[2017-01-10 01:41] LABS: INR 1.8; Prothrombin Time 19.8 Seconds (9.4-12.1)
[2017-01-10 01:43] LABS: Activated Partial Thrombo Time 39.1 Seconds (26.0-36.0)
[2017-01-10 04:33] LABS: Albumin 2.4 g/dL (3.5-5.0); Albumin/Globulin Ratio 0.6 (1.1-2.2); Bilirubin,Direct 0.3 mg/dL (0.0-0.5); Bilirubin,Indirect 0.2 mg/dL (0.0-1.2); Bilirubin,Total 0.5 mg/dL (0.2-1.2); Globulin 3.8 g/dL (2.4-3.5); Total Protein 6.2 g/dL (6.0-8.3)
[2017-01-10] MEDS: Ipratropium/Albuterol Neb 3 ML IH SCH (05:43)
[2017-01-10] MEDS: Ondansetron 4 MG/2 ML VIAL IVP PRN (06:40)
--- NOTE | 2017-01-10 07:24 | OB/GYN Progress Note ---
Date of Encounter: 01/10/17 Time of Encounter: 07:21 - Assessment and Plan (1) Abscess Current Visit: Yes Status: Acute Patient clinically looking very well, minimal tenderness. Incisions CDWA. Had low grade temp last night, but looks very good today and desires to go home. Will d/c home on Avelox and Flagyl. Pt to call for worsening of sx's. (2) S/P hysterectomy Current Visit: No Status: Acute Incisions are healing well without redness or erythema. (3) Hypoxia Current Visit: Yes Status: Acute Resolved. Normal spiral CT yesterday. (4) Anemia Current Visit: Yes Status: Acute Advised iron Qualifiers: Qualified Code(s): D64.9 - Anemia, unspecified Subjective - Subjective Principal diagnosis: s/p hyst, s/p drainage of two vaginal abcesses Interval history: Doing very well this am, appears to be in no distress. Minimal pain. Less ruq pain. No SOB. Reg diet with + BM Objective - Vital Signs Vital Signs: Vital Signs Temp Pulse Resp BP Pulse Ox 01/10/17 06:20 99.9 F H 105 18 96/59 95 01/10/17 04:47 20 90 01/10/17 03:46 98.3 F 98 18 88/57 94 01/10/17 01:40 99.8 F H 99 16 90/48 95 01/10/17 00:45 99.7 F H 104 18 90/50 97 01/10/17 00:10 100.6 F H 120 18 110/65 96 01/09/17 23:55 23 92 01/09/17 20:41 17 91 01/09/17 20:25 98.1 F 92 16 92/63 98 01/09/17 18:15 98.0 F 102 16 102/68 97 01/09/17 16:40 20 94 01/09/17 15:50 98.8 F 112 18 93/52 93 01/09/17 13:15 97.7 F 102 16 92/64 95 01/09/17 11:45 98.3 F 114 18 92/67 98 01/09/17 09:25 98.5 F 124 16 101/62 95 01/09/17 08:35 98.8 F 112 18 98/65 94 01/09/17 08:04 22 97 Intake and Output 01/09/17 01/09/17 01/10/17 15:59 23:59 07:59 Intake Total 150 / 150 1025 / 1025 100 / 100 Output Total 500 / 500 400 / 400 1300 / 1300 Balance -350 / -350 625 / 625 -1200 / -1200 Intake: IV Fluids 50 / 50 1025 / 1025 Lactated Ringers 1,000 ML 975 / 975 @ 125 mls/hr IVC .Q8H [facility] Rx#:[id number] Cleocin Premix 900 MG/50 50 / 50 50 / 50 ML 900 mg In 50 ml @ 50 mls/hr IVPB Q8HR [facility] Rx#: [id number] Oral 100 / 100 0 / 0 100 / 100 Output: Urine 500 / 500 400 / 400 1300 / 1300 Other: Meal Dinner Percent of Meal Consumed 25% Stool Size Large Stool Consistency soft Stool Characteristics Normal for Patient Normal for Patient Stool Color Brown # Bowel Movement Diapers 1 Weight 89 kg Patient Weight 01/10/17 23:59 Weight 89 kg - Exam Auscultation: bilateral: normal Abdomen: Present: normal appearance, soft Comments: Incisions CDWA, min tenderness - Labs Labs: Abnormal lab results WBC 15.7 K/mcL (4.3-11.1) H 01/10/17 01:26 RBC 3.11 M/mcL (3.82-4.97) L 01/10/17 01:26 Hgb 8.6 g/dL (11.5-15.4) L D 01/10/17 01:26 Hct 26.5 % (35.3-44.9) L 01/10/17 01:26 MCH 27.7 pg (28.0-33.3) L 01/10/17 01:26 MPV 9.2 fL (9.4-12.4) L 01/10/17 01:26 Neutrophils # 14.1 K/mcL (1.6-8.9) H 01/10/17 01:26 PT 19.8 Seconds (9.4-12.1) H 01/10/17 01:26 APTT 39.1 Seconds (26.0-36.0) H 01/10/17 01:26 Glucose 107 mg/dL (70-99) H 01/05/17 22:54 Albumin 2.4 g/dL (3.5-5.0) L 01/10/17 01:26 Globulin 3.8 g/dL (2.4-3.5) H 01/10/17 01:26 Albumin/Globulin Ratio 0.6 (1.1-2.2) L 01/10/17 01:26 Urine pH 8.5 pH Units (5.0-8.0) H 01/05/17 00:23 Ur Squamous Epith Cells Moderate per lpf (None-Few) H 01/05/17 00:23 Gentamicin Trough 5.49 mcg/mL (0-1.9) H 01/09/17 23:06
--- NOTE | 2017-01-10 07:59 | Discharge Summary ---
Date of Encounter: 01/10/17 Time of Encounter: 08:00 - Discharge Medications Prescriptions: Ondansetron [Zofran] 4 mg PO Q8HR PRN #20 tablet PRN Reason: Nausea HYDROcodone/Acet 5/325 mg [[place] 5-325 mg] 1 tab PO Q4H PRN #30 tab PRN Reason: post op pain metroNIDAZOLE [Flagyl] 500 mg PO BID #20 tablet Moxifloxacin HCl [Avelox] 400 mg PO DAILY #10 tablet Home Medications: Cyanocobalamin (Vitamin B-12) [Vitamin B-12] 5,000 mcg SL DAILY 02/23/16 [ History] Albuterol Sulfate [Albuterol Inhaler] 2 puff IH Q4HR PRN 12/17/16 [History] Loratadine [Claritin] 10 mg PO DAILY PRN 12/17/16 [History] Ibuprofen [Motrin] 600 mg PO Q6HR PRN #40 tab 12/18/16 [Rx] Ondansetron [Zofran] 4 mg PO Q8HR PRN #30 tablet 12/18/16 [Rx] OxyCODONE/APAP 5/325 [Percocet 5/325 MG] 1 each PO Q4HR PRN #30 tablet 12/18/16 [Rx] Levofloxacin [Levaquin] 750 mg PO DAILY #10 tablet 12/20/16 [Rx] HYDROcodone/Acet 5/325 mg [[place] 5-325 mg] 1 tab PO Q4H PRN #30 tab 01/09/17 [Rx ] Moxifloxacin HCl [Avelox] 400 mg PO DAILY #10 tablet 01/09/17 [Rx] Ondansetron [Zofran] 4 mg PO Q8HR PRN #20 tablet 01/09/17 [Rx] metroNIDAZOLE [Flagyl] 500 mg PO BID #20 tablet 01/09/17 [Rx] Allergies/Adverse Reactions: Allergies wheat Allergy (Verified 01/06/17 12:38) Vomiting adhesive Adverse Reaction (Verified 12/17/16 12:28) Rash cefazolin [From Ancef] Adverse Reaction (Verified 12/17/16 12:28) Hives Penicillins [PCN] Adverse Reaction (Verified 12/17/16 12:28) Hives Data Procedures and tests throughout hospitalization: Laboratory Tests 01/08/17 01/09/1717 06:12 08:24 23:06 WBC 10.6 22.7 H D RBC 3.29 L 3.80 L Hgb 9.1 L 10.5 L Hct 29.0 L 32.2 L MCV 88.1 84.7 MCH 27.7 L 27.6 L MCHC 31.4 L 32.6 RDW 13.1 13.1 Plt Count 355 404 H MPV 9.6 9.6 Immature Gran % 0.5 Seg Neutrophils % 78.3 92.0 Band Neutrophils % 2.0 Lymphocytes % 14.5 4.0 Monocytes % 5.6 2.0 Eosinophils % 0.8 Basophils % 0.3 Neutrophils # 8.3 21.3 H Lymphocytes # 1.5 0.9 Monocytes # 0.6 0.5 Eosinophils # 0.1 Basophils # 0.0 Platelet Estimate Normal PT INR APTT BUN 10 Creatinine 0.74 Est GFR ( Amer) > 60 Est GFR (Non-Af Amer) > 60 BUN/Creatinine Ratio 14 Lactic Acid Total Bilirubin Direct Bilirubin Indirect Bilirubin AST ALT Alkaline Phosphatase Serum Total Protein Albumin Globulin Albumin/Globulin Ratio Gentamicin Trough 5.49 H 01/10/17 01/10/17 01/10/17 01:26 01:26 01:26 WBC 15.7 H RBC 3.11 L Hgb 8.6 L D Hct 26.5 L MCV 85.2 MCH 27.7 L MCHC 32.5 RDW 13.6 Plt Count 327 MPV 9.2 L Immature Gran % 0.6 Seg Neutrophils % 89.4 Band Neutrophils % Lymphocytes % 6.2 Monocytes % 3.6 Eosinophils % 0.1 Basophils % 0.1 Neutrophils # 14.1 H Lymphocytes # 1.0 Monocytes # 0.6 Eosinophils # 0.0 Basophils # 0.0 Platelet Estimate PT 19.8 H INR 1.8 APTT 39.1 H BUN Creatinine Est GFR ( Amer) Est GFR (Non-Af Amer) BUN/Creatinine Ratio Lactic Acid Total Bilirubin 0.5 Direct Bilirubin 0.3 Indirect Bilirubin 0.2 AST 8 ALT 7 Alkaline Phosphatase 53 Serum Total Protein 6.2 Albumin 2.4 L Globulin 3.8 H Albumin/Globulin Ratio 0.6 L Gentamicin Trough 01/10/17 01:26 WBC RBC Hgb Hct MCV MCH MCHC RDW Plt Count MPV Immature Gran % Seg Neutrophils % Band Neutrophils % Lymphocytes % Monocytes % Eosinophils % Basophils % Neutrophils # Lymphocytes # Monocytes # Eosinophils # Basophils # Platelet Estimate PT INR APTT BUN Creatinine Est GFR ( Amer) Est GFR (Non-Af Amer) BUN/Creatinine Ratio Lactic Acid 0.9 Total Bilirubin Direct Bilirubin Indirect Bilirubin AST ALT Alkaline Phosphatase Serum Total Protein Albumin Globulin Albumin/Globulin Ratio Gentamicin Trough Labs on day of discharge: Labs from last 24 hours 01/10/17 01/10/17 01/10/17 01:26 01:26 01:26 WBC RBC Hgb Hct MCV MCH MCHC RDW Plt Count MPV Immature Gran % Seg Neutrophils % Band Neutrophils % Lymphocytes % Monocytes % Eosinophils % Basophils % Neutrophils # Lymphocytes # Monocytes # Eosinophils # Basophils # Platelet Estimate PT 19.8 H INR 1.8 APTT 39.1 H BUN Creatinine Est GFR ( Amer) Est GFR (Non-Af Amer) BUN/Creatinine Ratio Lactic Acid 0.9 Total Bilirubin 0.5 Direct Bilirubin 0.3 Indirect Bilirubin 0.2 AST 8 ALT 7 Alkaline Phosphatase 53 Serum Total Protein 6.2 Albumin 2.4 L Globulin 3.8 H Albumin/Globulin Ratio 0.6 L Gentamicin Trough 01/10/17 01/09/17 01/09/17 01:26 23:06 08:24 WBC 15.7 H 22.7 H D RBC 3.11 L 3.80 L Hgb 8.6 L D 10.5 L Hct 26.5 L 32.2 L MCV 85.2 84.7 MCH 27.7 L 27.6 L MCHC 32.5 32.6 RDW 13.6 13.1 Plt Count 327 404 H MPV 9.2 L 9.6 Immature Gran % 0.6 Seg Neutrophils % 89.4 92.0 Band Neutrophils % 2.0 Lymphocytes % 6.2 4.0 Monocytes % 3.6 2.0 Eosinophils % 0.1 Basophils % 0.1 Neutrophils # 14.1 H 21.3 H Lymphocytes # 1.0 0.9 Monocytes # 0.6 0.5 Eosinophils # 0.0 Basophils # 0.0 Platelet Estimate Normal PT INR APTT BUN 10 Creatinine 0.74 Est GFR ( Amer) > 60 Est GFR (Non-Af Amer) > 60 BUN/Creatinine Ratio 14 Lactic Acid Total Bilirubin Direct Bilirubin Indirect Bilirubin AST ALT Alkaline Phosphatase Serum Total Protein Albumin Globulin Albumin/Globulin Ratio Gentamicin Trough 5.49 H - Impressions ITS Impressions Pelvis CT 01/08/17 09:30 IMPRESSION: 1. Status post hysterectomy with similar appearance of a complex fluid collection in the surgical bed containing gas extending from the vaginal cuff. 2. Slight interval decrease in size of bilateral adnexal abscesses extending from the vaginal cuff and contiguous with the ovarian vasculature. The left abscess measures up to 3.4 cm. The right abscess measures up to 5.0 cm. Findings are associated with moderate inflammatory stranding. 3. Tiny focus of gas in the bladder may be iatrogenic or related to recent instrumentation. No definite communication with the abscess is identified. D/ / 01/08/2017 10:30:57 Aileen Gross MD / sachin Interpreting Provider: Aileen Gross MD Chest CTA 01/09/17 09:30 IMPRESSION: 1. Negative CT angiogram for acute pulmonary embolism. 2. No acute cardiopulmonary process identified. 3. Small volume of perihepatic free fluid. D/ / 01/09/2017 10:16:36 Dusty Yi MD / earpamela Interpreting Provider: Dusty Yi MD Date of admission: 01/07/17 08:28 Primary care physician: Josemanuel Welsh - Patient Status Disposition: Home, Self-Care Condition: Fair - Discharge Instructions Instructions: Anemia (GEN) Follow Up With: Lino Pichardo MD [Partnered Physician] - Additional Instructions: You have had a surgery called a hysterectomy. Your uterus, fallopian tubes, ovaries or all of these were removed, depending on your condition. If your fallopian tubes and ovaries were removed, you may need to talk hormone replacement medications. Your doctor will discuss this with you. If your tubes and ovaries were not removed, you can expect to have menopause (change of life) at the normal time. This is usually between the age of 40 and 50. MEDICATIONS: -Continue taking your home medications as prescribed by your doctor prior to surgery. You will be notified of any changes in home medications before leaving the hospital. -A prescription for pain medication may be given to you. Take it as directed. It is important to control your pain during recovery. -Do not stop taking antibiotics if they were prescribed for you. Take them until they are all gone. Antibiotics are sometimes used to prevent infection after surgery. BOWEL MOVEMENTS: -You may not have a bowel movement for a few days after surgery. The first one may be difficult to pass. Do not strain in order to go, and allow yourself plenty of time when going for the first time following your surgery. -To help soften your stool, eat a diet high in fiber. This includes foods such as cereals, whole grain breads and vegetables. You can also take a fiber supplement or stool softeners, which your provider may prescribe for you. DIET: -Your appetite may be decreased following surgery. You will be eating regular food before you are discharged from the hospital. Start out with small amounts of food and increase your meals as you are able to tolerate them without feeling nauseated. -Eat healthy foods to help you heal more quickly and increase your energy. Avoid foods that cause gas, as this will make you feel uncomfortable. -Drink 6-8 glasses of water each day. SMOKING: -Smoking increases your chances of post-surgical complications. It is never too late to quit. Ask your nurse or provider for information to help you quit smoking. ACTIVITY: -Restrict yourself to light activity and increase your activity level slowly, resting frequently. -Be aware your pain medication may cause drowsiness. -It usually takes 4-8 weeks for the body to heal. -You may walk slowly. Limit stair climbing. Do not exercise until the provider tells you it is safe to do so. -No douching, tampons or sex for 6 weeks. This will allow time for healing. You can no longer get after having a hysterectomy but will still need to protect yourself from sexually transmitted diseases. -Lift nothing heavier than 10-15 pounds for 2 weeks. -You can drive in about 2 weeks, unless otherwise instructed by your provider. -You can expect to return to work or school and other normal activities in about 6 weeks or as directed by your provider. BATHING: -You can bathe or shower in 2 days. You may have packing inserted into the vagina. This will be removed prior to discharge form the hospital. STRESS AND MOOD -A hysterectomy may change the way that you view yourself. These are normal feelings. Talk to your family and health care provider about these feelings. If you feel depressed, seek counseling or talk to your provider about treatment options. It is important in the healing process to have a healthy mind. WHEN TO CALL THE DOCTOR: -If your stitches are swollen, red or have drainage coming from them or if you notice them coming apart. It is normal for your incision to feel numb up to a year. -If you are having chills, fever or a reaction to your medicine. -If your incision is bleeding or you have increased pain in your incision. -If within an hour you have soaked a sanitary pad with vaginal bleeding. -If you are unable to urinate or it has been 4-6 hours since you have urinated. Also, if you have burning with urination or feel like you cant completely empty your bladder; call your provider for further instructions. -If you have a smelly discharge coming from your incision or vagina. -If you have any questions about your surgery or medications. If you have difficulty breathing, chest pain, uncontrolled bleeding or any other emergency, call 911 or report to the nearest emergency department immediately.There are many types of gynecologic surgery. Below, you will find groups of instructions related to caring for yourself after your procedure. there may be instructions that do not apply to you depending on the procedure that you had. Before you go home, your nurse will explain these instructions and let you know any special instructions that you may have. MEDICATIONS: -Continue taking your home medications as prescribed by your doctor prior to surgery. You will be notified of any changes in home medications before leaving the hospital. -A prescription for pain medication may be given to you. Take it as directed. It is important to control your pain during recovery. -Do not stop taking antibiotics if they were prescribed for you. Take them until they are all gone. Antibiotics are sometimes used to prevent infection after surgery. BOWEL MOVEMENTS: -You may not have a bowel movement for a few days after surgery. The first one may be difficult to pass. Do not strain in order to go, and allow yourself plenty of time when going for the first time following your surgery. -To help soften your stool, eat a diet high in fiber. This includes foods such as cereals, whole grain breads and vegetables. You can also take a fiber supplement or stool softeners, which your provider may prescribe for you. DIET: -Your appetite may be decreased following surgery. You will be eating regular food before you are discharged from the hospital. Start out with small amounts of food and increase your meals as you are able to tolerate them without feeling nauseated. -Eat healthy foods to help you heal more quickly and increase your energy. Avoid foods that cause gas, as this will make you feel uncomfortable. -Drink 6-8 glasses of water each day. SMOKING: -Smoking increases your chances of post-surgical complications. It is never too late to quit. Ask your nurse or provider for information to help you quit smoking. ACTIVITY: -Restrict yourself to light activity and increase your activity level slowly, resting frequently. -Be aware your pain medication may cause drowsiness. -It usually takes 4-8 weeks for the body to heal. -You may walk slowly. Limit stair climbing. Do not exercise until the provider tells you it is safe to do so. -No douching, tampons or sex for 6 weeks. This will allow time for healing. You can no longer get after having a hysterectomy but will still need to protect yourself from sexually transmitted diseases. -Lift nothing heavier than 10-15 pounds for 2 weeks. -You can drive in about 2 weeks, unless otherwise instructed by your provider. -You can expect to return to work or school and other normal activities in about 6 weeks or as directed by your provider. -When you get home, you may shower normally. If you have an incision, wash the area with soap and water and dry thoroughly after showering. You may have steri -strips (thin strips of tape used to help hold the incision together while it heals). If these are present, do not remove them. Keep the area of your incision clean and dry. STRESS AND MOOD -A hysterectomy may change the way that you view yourself. These are normal feelings. Talk to your family and health care provider about these feelings. If you feel depressed, seek counseling or talk to your provider about treatment options. It is important in the healing process to have a healthy mind. WHEN TO CALL THE DOCTOR: -If your stitches are swollen, red or have drainage coming from them or if you notice them coming apart. It is normal for your incision to feel numb up to a year. -If you are having chills, fever or a reaction to your medicine. -If your incision is bleeding or you have increased pain in your incision. -If within an hour you have soaked a sanitary pad with vaginal bleeding. -If you are unable to urinate or it has been 4-6 hours since you have urinated. Also, if you have burning with urination or feel like you cant completely empty your bladder; call your provider for further instructions. -If you have a smelly discharge coming from your incision or vagina. -If you have any questions about your surgery or medications. If you have difficulty breathing, chest pain, uncontrolled bleeding or any other emergency, call 911 or report to the nearest emergency department immediately. 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 Time Attestation: Total time spent providing and/or coordinating discharge services: Exam - Constitutional Vitals: Temp Pulse Resp BP Pulse Ox 99.9 F H 105 18 96/59 95 01/10/17 06:20 01/10/17 06:20 01/10/17 06:20 01/10/17 06:20 01/10/17 06:20 General appearance IM: A&O X 3 - GI/Abdominal Additional comments: See MD antepartum note. - VTE Documentation of Mechanical Device: Intermittent pneumatic compression device
[2017-01-10 08:42] VITALS: BP 100/68
[2017-01-10] MEDS ORDERED: Aminoglycoside Consult 1 EACH MC ONE (09:46)
== END 2017-01-10 09:47 | disposition home or self-care (01) | DRG 857 ==
LOC: 1NENUOBS 22:43 → EMEROO 22:43 → 1NENUPED 01-06 03:38 → 1NENUOBS 01-06 09:25
PROVIDERS: ADMIT Student in an Organized Health Care Education/Training Program; ATTEND Student in an Organized Health Care Education/Training Program